=== PATIENT | male | born 1940 | race Caucasian/White ===

== ENCOUNTER → 2018-08-23 06:05 | Outpatient (CLI) | payer MEDICARE, OTHER, SELFPAY ==
--- NOTE | 2018-08-23 06:41 | MRI_ITS ---
STUDY: MRI ABDOMEN WITHOUT CONTRAST REASON FOR EXAM: Male, 78 years old. Dilated common bile duct and elevated liver enzymes. TECHNIQUE: Standardized fat and water weighted pulse sequences were obtained in all 3 orthogonal planes. COMPARISON: Prior comparison studies are not available for review at this time. FINDINGS: The visualized lung bases are unremarkable. The visualized portions of the heart are within normal limits. Normal liver. Normal gallbladder and extrahepatic biliary system. The common bile duct measures 5.9 mm in greatest transverse dimension at the pancreatic head. There is a questionable stricture of the common bile duct within the ampulla. Normal spleen. There is diffuse atrophy of the pancreas. Normal bilateral adrenal glands. Normal right kidney. There appear to be a cyst within the left kidney as well as a exophytic cyst arising from the right kidney. The largest cyst measures up to 3.6 cm in greatest dimension. Normal visualized stomach. There is no evidence for dilated bowel, ascites or pneumoperitoneum. Normal colon. There is non-visualization of the appendix. Abdominal aorta is mildly tortuous. Normal inferior vena cava. Normal retroperitoneum. Normal abdominal wall. Normal osseous structures. MRI/Abdomen without Contrast IMPRESSION: 1. Mild prominence of the extrahepatic ducts without evidence for choledocholithiasis. Questionable biliary stricture. 2. Bilateral renal cysts. Electronically Signed: Meredith Urias MD at 4:59 EST , Service support ,
== END ==
PROVIDERS: Family Provider Family Medicine; PCP Family Medicine; Referring Provider Internal Medicine Gastroenterology; Visit Provider Internal Medicine Gastroenterology
DX: K83.8 Other specified diseases of biliary tract (principal); R94.5 Abnormal results of liver function studies
CPT/HCPCS: 74181

== ENCOUNTER 2019-02-21 12:16 | Inpatient (IN) | payer MEDICARE, OTHER, SELFPAY ==
[2019-02-21] VITALS (9 sets, daily range): BP systolic 125–159; BP diastolic 49–66; PULSE 87–107; RESP 16–18; TEMP 36.8–38.3; O2SAT 95–97; BMI 24.0; BMI 23.7; BMI 23.8
--- NOTE | 2019-02-21 12:43 | RAD_ITS ---
STUDY: X-RAY CHEST REASON FOR EXAM: Male, 79 years old. Chest pain. Fever. Weakness/fatigue. TECHNIQUE: Single AP portable view of the chest. COMPARISON: None. FINDINGS: Increased markings at the lung bases worse in the lingular segment of the left upper lobe. This most likely secondary to scarring although atelectasis cannot be excluded. There is no demonstrated pleural abnormality. Normal size heart. Calcification of the mitral valve annulus. Normal mediastinum and gay. Normal visualized pulmonary arteries. There is atherosclerotic calcification of the aortic arch with tortuosity. There are diffuse degenerative changes of the visualized thoracic spine. Normal visualized ribs, clavicles, and shoulders. There is no demonstrated abnormality of the visualized soft tissue structures of the upper abdomen. RAD/Chest 1 View (Portable) IMPRESSION: Mild increased markings at the lung bases worse in the lingular segment of the left upper lobe as described. Follow-up is recommended. Electronically Signed: Gal Hanna, at 13:14 EDT , Service support ,
--- NOTE | 2019-02-21 12:43 | EKG12_ITS ---
Test Reason : WEAKNESS Blood Pressure : / mmHG Vent. Rate : 097 BPM Atrial Rate : 097 BPM P-R Int : 150 ms QRS Dur : 108 ms QT Int : 326 ms P-R-T Axes : 013 019 025 degrees QTc Int : 414 ms Normal sinus rhythm Incomplete right bundle branch block Nonspecific ST abnormality Abnormal ECG Confirmed by LANEY LIRA, ALEJANDRA ([id number]), industrial editor MAMTA ALBARRAN ([id number]) on 02/23/2019 10:45:03 AM Referred By: ELIO Confirmed By:ALEJANDRA DAVISON MD
[2019-02-21 13:13] LABS: Absolute Lymphocyte Count 0.53 X10^3/uL (0.83-4.51); Absolute Neutrophil Count 18.1 X10^3/uL (2.0-7.7); Basophil# 0.02 X10^3/uL; Basophil% 0.1 % (0-1); Hematocrit 37.1 % (40-54); Hemoglobin 12.6 g/dL (13.0-16.5); Lymphocyte # 0.53 X10^3/ul (4.0); Lymphocyte % 2.7 % (19-41); Mean Corpuscular Hgb 30.6 pg (27.0-32.0); Mean Platelet Vol. 9.3 fl (6.2-12.0); Monocyte# 1.09 X10^3/uL; Monocyte% 5.5 % (0-10); NRBC Flagged by Analyzer 0 % (0-5); Neutrophil # 18.05 X10^3/uL (2.7-7.7); Neutrophil % 90.1 % (47-70); POSITIVE DIFFERENTIAL YES; POSITIVE MORPHOLOGY YES; Platelet Count 165 K/mm3 (150-450); RBC Distribution Width CV 13.5 % (11.6-14.6); RBC Distribution Width SD 44.7 fl (35.1-43.9); Red Blood Count 4.12 M/mm3 (4.6-6.2)
[2019-02-21] MEDS: 0.9% Normal Saline 1,000 ML 999 ML IV (13:13)
[2019-02-21 13:21] LABS: Squamous Epithelial Cells - UA 0 SEEN /hpf (0-5)
[2019-02-21 13:35] LABS: Anion Gap 7 (5-15); BUN 13 mg/dL (7-18); BUN/Creat Ratio 11.7 RATIO (10-20); Calcium,Total 8.6 mg/dL (8.5-10.1); Chloride 101 mmol/L (98-107); Creatinine, Serum 1.11 mg/dL (0.70-1.30); EST Glomerular Filtration Rate 68 mL/min (>60); Est Glom Filt Rate - Afr Amer 83 mL/min (>60); Estimated Creatinine Clearance 59.36 ml/min; Glucose 146 mg/dL (74-106); Potassium 3.9 mmol/L (3.5-5.1); Sodium Level 135 mmol/L (136-145); Thyroid Stim Hormone (TSH) 0.43 uIU/mL (0.358-3.74)
[2019-02-21 13:36] LABS: Color, Urine Yellow (Yellow); Glucose, Dipstick 50 mg/dl (Normal); Ketone-Dipstick 15 mg/dl (Negative); Leukocyte Esterase-Dipstick 500 /ul (Negative); Nitrite-Dipstick Negative (Negative); Occult Blood-Urine 25 /ul (Negative); Protein-Dipstick 100 mg/dl (Negative); Urine Clarity Cloudy (Clear); Urine Urobilinogen 8 mg/dl (Normal)
[2019-02-21 13:53] LABS: Urine Bilirubin Dipstick 1 mg/dL (Negative)
[2019-02-21 14:00] LABS: Bacteria 2+ /hpf (None Seen); Mucous, Urine 4+ /hpf (<or=2+); White Blood Cells >100 SEEN /hpf (0-5)
[2019-02-21 14:01] LABS: Amorphous Sediment 1+; Red Blood Cells-Urine 5-10 SEEN /hpf (0-5)
[2019-02-21 14:09] LABS: Platelet Estimate ADEQUATE (ADEQ); Red Cell Morphology NORM C+C NORMAL (NORM C&C)
[2019-02-21 14:15] LABS: Differential Indicated SCAN CRITERIA MET
--- NOTE | 2019-02-21 14:17 | ED.VISSUMM ---
- ER Visit Summary Date of Service: 02/21/19 Chief Complaint: Weakness History of Present Illness: The patient is a 79 M with generalized weakness for several days. He feels like he might be dehydrated. He is sleeping more than usual. He feels dizzy and lightheaded at times. He had a fever as high as 102 at home. He was vomiting yesterday. He never felt like this before. He has a history of hypertension, BPH, and restless leg syndrome. Physical Examination: Heart rate 107. Afebrile. Otherwise vitals unremarkable. HEENT exam unremarkable. Heart tachycardic but regular. Lungs clear. Abdomen soft and nontender. Extremities normal. Skin normal. Test Results: EKG showed sinus rhythm at a rate of 97. Nonspecific ST changes. No sign of acute ischemia or infarction pattern. White count 20 and hemoglobin 12.6. Sodium 135 and glucose 146. Urinalysis shows signs of infection. Cultures pending. Lactate pending. Troponin normal. TSH normal. Chest x-ray showed increased marking at the bases favoring scarring versus atelectasis. Emergency Department Course and Treatment: Patient was treated with IV fluids while awaiting results. His initial symptoms were nonspecific. His white count is elevated and he meets sepsis criteria. His urine shows signs of infection. Cultures and lactate were added. He was treated with Rocephin. Given his age, sepsis, infection findings, he will be discussed with the hospitalist for admission. Treatment Plan: As above Disposition: Admission Impression: 1. UTI 2. Sepsis This note was generated with [employer] dictation software. It may contain incorrect words, spelling, and punctuation that were not noted in review of the chart prior to signing ED Disposition - Plan for ED Patient: Referrals: Yoel Yoder MD [Primary Care Provider] -
--- NOTE | 2019-02-21 14:24 | HP.PCM_ITS ---
Problem List (1) Urinary tract infection with fever Status: Acute (2) Hypertension Status: Chronic (3) BPH Status: Chronic History of Present Illness Date of Admission: 02/21/19 Chief Complaint: Fever for 3 to 4 days The patient is a 79 year old M was sent to ER from PCP Dr. Yoder for fever 102 Fahrenheit at home along with feeling generalized weakness for 3 to 4 days. Patient is also very somnolent and feels dehydrated. As per the , patient is fairly healthy person does not have medical comorbidities except hypertension and BPH. Patient has burning micturition for 3 to 4 days along with intermittent micturition. He denies any change in the frequency or urgency and has chronic urinary incontinence. He wakes up 3 times a night and 4 times during daytime for urination. Denies cough, sore throat or other upper respiratory symptoms except nasal congestion when he wakes up in the morning Denies any history of kidney stone, renal angle pain/back pain, nausea, vomiting. In ED, T-max 100.8, heart rate 99/min but no tachypnea or hypoxia. Basic labs shows leukocytosis 20,000 with left shift 90% neutrophil. Glucose 146. Sodium 135. UA more than 100 WBC, 2+ bacteria, LE 500, nitrite negative. Patient is started on IV ceftriaxone in ED. Chest x-ray shows mild increased markings at lung bases worse in the lumbar segment. This most likely secondary to scarring although atelectasis cannot be excluded. Past Medical History Past Medical History (Chronic Problems): Chronic Problems Hypertension (Chronic) BPH (Chronic) Allergies No Known Allergies Allergy (Verified 02/21/19 12:18) Home Medications: Ambulatory Orders Medication Instructions Recorded Aspirin [Aspirin, Baby] 81 mg PO DAILY@0800 02/21/19 Lisinopril [Zestril] 10 mg pe PO DAILY 02/21/19 Multivitamin [Daily Multiple 1 ea PO DAILY 02/21/19 Vitamin] Ropinirole HCl [Requip] 2 mg PO DAILY 02/21/19 Terazosin HCl 5 mg PO DAILY 02/21/19 Smoking Status: Former smoker - *Family History Maternal History Items: Stroke Review of Systems Constitutional: Reports: Anorexia, Chills, Fever, Malaise, Weakness, Fatigue HEENT: Reports: Difficulty Hearing. Denies: Head Aches, Sinus Congestion, Sinus Drainage Cardiovascular: Denies: Chest Pain, Palpitations Respiratory: Denies: Cough, Shortness of breath at rest, Sputum production Gastrointestinal: Denies: Abdominal Pain, Nausea, Vomiting Genitourinary: Denies: Dysuria Musculoskeletal: Denies: Joint Pain, Joint Tenderness Skin: Denies: Rash, Wounds Neurological: Denies: Numbness, Tingling, Focal weakness Psychiatric: Denies: Anxiety, Depression, Homicidal Ideations, Suicidal Ideations Hematologic/ Lymphatic: Denies: Easy Bruising, Easy Bleeding VTE Information - Inpt Only VTE Present on Admission: No VTE Mechan Device Prophylaxis: SCD's, None VTE Pharm Prophylaxis ordered?: Yes Patient Problems: Active and Suspected Problems Urinary tract infection with fever (Acute) - Physical Exam General: Alert, Oriented x3, Cooperative HEENT: Atraumatic, PERRLA, EOMI, Normocephalic Oral: - - Hard of hearing on left ear Neck: Supple, No JVD, Negative Carotid Bruits Lungs: Clear to auscultation, No rhonchi, No wheeze, Diminished - Air entry is diminished on bilateral lung bases. Cardiovascular: Regular rate, Regular Rhythm, Normal S1, Normal S2, No murmurs Abdomen: Bowel Sounds Present, Soft, Non Tender, Non-Distended, - - No renal angle tenderness or fullness. No suprapubic tenderness. Extremities: No edema, Capillary Refill Less than 3 Seconds Skin: No rashes, No breakdown Musculoskeletal: No Tenderness to Palpation of Joints or Extremities, Arthritic Changes Lymphatic: No Cervical, Supraclavicular, or Inguinal Adenopathy Neurological: Cranial nerves II-XII grossly intact, Deep Tendon Reflexes 2+/4 and Symmetrical, Neuro grossly intact, Motor Exam 5/5 strength throughout Psych/Mental Status: Normal Affect, Appropriate Vital Signs Temp Pulse Resp BP Pulse Ox 100.5 F H 95 16 159/51 H 96 02/21/19 14:15 02/21/19 14:15 02/21/19 14:15 02/21/19 13:28 02/21/19 14:15 Oxygen Delivery Method Room Air Weight: 171 lb 15.369 oz Body Mass Index (BMI) 24.0 Laboratory Tests Past 24 Hrs 02/21/19 02/21/19 02/21/19 13:00 13:00 13:14 WBC 20.0 H RBC 4.12 L Hgb 12.6 L Hct 37.1 L MCV 90.0 MCH 30.6 MCHC 34.0 RDW Std Deviation 44.7 H RDW Coeff of [place] 13.5 Plt Count 165 MPV 9.3 Immature Gran % (Auto) 1.600 H Neut % (Auto) 90.1 H Lymph % (Auto) 2.7 L Benson % (Auto) 5.5 Eos % (Auto) 0.0 Baso % (Auto) 0.1 Absolute Neuts (auto) 18.1 H Absolute Lymphs (auto) 0.53 L Nucleated RBC % 0 Platelet Estimate ADEQUATE RBC Morphology NORM C+C Sodium 135 L Potassium 3.9 Chloride 101 Carbon Dioxide 27.0 Anion Gap 7 BUN 13 Creatinine 1.11 Estim Creat Clear Calc 59.36 Est GFR (MDRD) Af Amer 83 Est GFR (MDRD) Non-Af 68 BUN/Creatinine Ratio 11.7 Glucose 146 H Calcium 8.6 Troponin I < 0.015 TSH 0.43 Urine Color Yellow Urine Clarity Cloudy Urine pH 6.0 Ur Specific [place] 1.020 Urine Protein 100 H Urine Glucose (UA) 50 H Urine Ketones 15 H Urine Occult Blood 25 H Urine Nitrite Negative Urine Bilirubin 1 H Urine Urobilinogen 8 H Ur Leukocyte Esterase 500 H Urine RBC 5-10 SEEN Urine WBC >100 SEEN Ur Squamous Epith Cells 0 SEEN Amorphous Sediment 1+ Urine Bacteria 2+ Urine Mucus 4+ Assessment/Plan All Active Problems Urinary tract infection with fever (Acute) The patient is a 79 year old M was sent to ER from PCP Dr. Yoder for fever 102 Fahrenheit at home along with feeling generalized weakness for 3 to 4 days. Patient is also very somnolent and feels dehydrated. As per the , patient is fairly healthy person does not have medical comorbidities except hypertension and BPH. In ED, T-max 100.8, heart rate 99/min but no tachypnea or hypoxia. Basic labs shows leukocytosis 20,000 with left shift 90% neutrophil. Glucose 146. Sodium 135. UA more than 100 WBC, 2+ bacteria, LE 500, nitrite negative. Patient is started on IV ceftriaxone in ED. 1. SIRS( fever, leukocytosis with left shift) secondary to UTI: The patient is being admitted on [facility] floor. Started on IV fluid normal saline. On IV cef triaxone. Urine culture and blood cultures x2 ordered from ED. Renal and bladder ultrasound ordered. 2. Generalized weakness, probably secondary to UTI: TSH is normal 0.43. PT and OT ordered. 3. BPH: The patient has chronic history of increased frequency, urgency, dribbling of urine and intermittent micturition: Continue Flomax. Bladder scan every 4 hourly for postvoid residual. 4. Abnormal chest x-ray finding probably secondary to atelectasis: Chest x-ray shows mild increased markings at lung bases worse in the lumbar segment. This most likely secondary to scarring although atelectasis cannot be excluded. Repeat chest x-ray PA and lateral tomorrow a.m. 5. Other comorbidities include hypertension, restless leg syndrome: Controlled. Continue home medications. DVT prophylaxis: Lovenox 40 mg subcu daily. MOLST/advance directive/living will: Discussed with the patient and his near the bedside. Patient has living will but does not know about the content. On giving different options full code, DNR CC arrest and DNR CC, patient picked up a full code for now. Advised to bring up living will to hospital. Currently, patient agrees for artificial life support including intubation, tube feed, ventilator and/chest compression. Full code. Total time spent in [id number] encounter in discussion of advanced directive 18 minutes. Clinical Impression(s) from Imaging Studies Chest X-Ray 02/21/19 12:43 IMPRESSION: Mild increased markings at the lung bases worse in the lingular segment of the left upper lobe as described. Follow-up is recommended. Code Visit Inpatient E&M: 49875 Init Hosp L3 Procedures: 07865 Advncd Care Plan 30 Min
[2019-02-21] MEDS: Ceftriaxone 1 GM/50 ML BAG IV (14:51)
[2019-02-21 15:00] LABS: Lactic Acid 0.9 mmol/L (0.4-2.0)
--- NOTE | 2019-02-21 15:16 | US_ITS ---
STUDY: RENAL ULTRASOUND - COMPLETE REASON FOR EXAM: Male, 79 years old. Fever, UTI TECHNIQUE: Ultrasound evaluation of the kidneys was performed with real-time and static hutchinson-scale imaging. COMPARISON: None. FINDINGS: RIGHT KIDNEY: Normal location of the right kidney, which is normal in size. The right kidney measures 13.7 x 5.9 x 5.1 cm. There is a normal cortex of the right kidney. The renal cortex measures 1.7 cm. There is an upper pole exophytic 2.3 cm right renal cyst. There are no right renal calculi. There is no right hydronephrosis. DISTAL RIGHT URETER: There is non-visualization of the distal right ureter. There is no demonstrated right ureterovesical junction calculus. There is a visualized right ureteral jet. LEFT KIDNEY: Normal location of the left kidney, which is normal in size. The left kidney measures 13.8 x 4.6 x cysts up to 1.6 cm. There is a normal cortex of the left kidney. The renal cortex measures 1.8 cm. There is no left renal mass or cyst. There are no left renal calculi. There is no left hydronephrosis. DISTAL LEFT URETER: There is non-visualization of the distal left ureter. There is no demonstrated left ureterovesical junction calculus. There is a visualized left ureteral jet. BLADDER: The distended urinary bladder has a volume of 230 ml. There is irregular slightly thickened posterior wall. There is no demonstrated mass within the urinary bladder. There are no demonstrated bladder calculi. US/Kidney and Bladder IMPRESSION: Cysts are noted of the kidneys. Posterior irregular slightly thickened wall is noted of the urinary bladder. Cystitis cannot be excluded. Electronically Signed: Anthony Luna DO at 18:15 EDT Tel [phone], Service support ,
[2019-02-21] MEDS: Acetaminophen 325 MG Tablet 650 MG PO (15:45)
[2019-02-21] MEDS: 0.9% Normal Saline 1,000 ML 100 ML IV (15:45)
[2019-02-21] MEDS: Enoxaparin 40 MG/0.4 ML Syringe SC (15:46)
[2019-02-22] VITALS (7 sets, daily range): BP systolic 139–152; BP diastolic 53–65; PULSE 70–100; RESP 18; TEMP 36.8–37.2; O2SAT 95–98
[2019-02-22 05:39] LABS: Absolute Lymphocyte Count 0.92 X10^3/uL (0.83-4.51); Absolute Neutrophil Count 12.6 X10^3/uL (2.0-7.7); Basophil# 0.03 X10^3/uL; Basophil% 0.2 % (0-1); Eosinophil# 0.01 X10^3/uL; Eosinophils% 0.1 % (0-5); Hematocrit 35.8 % (40-54); Hemoglobin 11.7 g/dL (13.0-16.5); Lymphocyte # 0.92 X10^3/ul (4.0); Lymphocyte % 6.3 % (19-41); Mean Corp Hgb Conc 32.7 g/dL (32-36); Mean Corpuscular Hgb 29.4 pg (27.0-32.0); Mean Corpuscular Volume 89.9 fL (80-94); Mean Platelet Vol. 9.3 fl (6.2-12.0); Monocyte# 0.89 X10^3/uL; Monocyte% 6.1 % (0-10); NRBC Flagged by Analyzer 0 % (0-5); Neutrophil # 12.64 X10^3/uL (2.7-7.7); Neutrophil % 86.7 % (47-70); Platelet Count 149 K/mm3 (150-450); RBC Distribution Width CV 13.4 % (11.6-14.6); Red Blood Count 3.98 M/mm3 (4.6-6.2); White Blood Count 14.6 K/mm3 (4.4-11.0)
[2019-02-22 06:05] LABS: Anion Gap 8 (5-15); BUN 11 mg/dL (7-18); BUN/Creat Ratio 12.1 RATIO (10-20); Calcium,Total 8.4 mg/dL (8.5-10.1); Chloride 104 mmol/L (98-107); Creatinine, Serum 0.91 mg/dL (0.70-1.30); EST Glomerular Filtration Rate 86 mL/min (>60); Est Glom Filt Rate - Afr Amer 104 mL/min (>60); Estimated Creatinine Clearance 70.19 ml/min; Glucose 118 mg/dL (74-106); Potassium 3.9 mmol/L (3.5-5.1); Sodium Level 138 mmol/L (136-145); T4 Free Direct 0.93 ng/dL (0.76-1.46)
--- NOTE | 2019-02-22 07:12 | PCM.PN.HOSP ---
Patient Problems: Active and Suspected Problems Urinary tract infection with fever (Acute) Subjective: Patient is a 79-year-old male sent from PCPs office with progressive generalized weakness of 3-4 duration as well as fever. Patient assessment on admission was consistent with sepsis secondary to UTI admitted to regular nursing for further management Patient has been admitted to a regular nursing floor where he is currently being managed. W BC count remains elevated at 15 K Objective: GENERAL: cooperative HEENT: Atraumatic; EYES; Anicteric, Normal Conjunctiva NECK; supple, normal thyroid, RESPIRATORY: Diminished to auscultation CARDIOVASCULAR: Regular S1 S2, GI: soft, non-tender, normoactive bowel sounds, : No Renal angle tenderness; EXTREMITIES: No edema, no clubbing, MUSCULOSKELETAL: No Joint Tenderness; NEURO: Awake; no lateralizing signs. SKIN: No Rash PSYCH; Normal affect Vitals/I&O's: Vital Signs Temp Pulse Resp BP Pulse Ox 98.2 F 93 18 152/60 H 97 02/22/19 02:45 02/22/19 02:45 02/22/19 02:45 02/22/19 02:45 02/22/19 02:45 Oxygen Delivery Method Room Air Weight: 77 kg Body Mass Index (BMI) 23.7 Intake and Output for Last 24 Hours 02/20/19 02/21/19 02/22/19 23:59 23:59 23:59 Intake Total 506 / 1307 1318 / 1318 Balance 506 / 1307 1318 / 1318 Laboratory Results 02/21/19 13:00: WBC 20.0 H, RBC 4.12 L, Hgb 12.6 L, Hct 37.1 L, MCV 90.0, MCH 30.6, MCHC 34.0, RDW Std Deviation 44.7 H, RDW Coeff of [place] 13.5, Plt Count 165, MPV 9.3, Immature Gran % (Auto) 1.600 H, Neut % (Auto) 90.1 H, Lymph % (Auto) 2.7 L, Clay % (Auto) 5.5, Eos % (Auto) 0.0, Baso % (Auto) 0.1, Absolute Neuts (auto) 18.1 H, Absolute Lymphs (auto) 0.53 L, Nucleated RBC % 0, Platelet Estimate ADEQUATE, RBC Morphology NORM C+C 02/21/19 13:00: Sodium 135 L, Potassium 3.9, Chloride 101, Carbon Dioxide 27.0, Anion Gap 7, BUN 13, Creatinine 1.11, Estim Creat Clear Calc 59.36, Est GFR (MDRD) Af Amer 83, Est GFR (MDRD) Non-Af 68, BUN/Creatinine Ratio 11.7, Glucose 146 H, Calcium 8.6, Troponin I < 0.015, TSH 0.43 02/21/19 13:14: Urine Color Yellow, Urine Clarity Cloudy, Urine pH 6.0, Ur Specific [place] 1.020, Urine Protein 100 H, Urine Glucose (UA) 50 H, Urine Ketones 15 H, Urine Occult Blood 25 H, Urine Nitrite Negative, Urine Bilirubin 1 H, Urine Urobilinogen 8 H, Ur Leukocyte Esterase 500 H, Urine RBC 5-10 SEEN, Urine WBC >100 SEEN, Ur Squamous Epith Cells 0 SEEN, Amorphous Sediment 1+, Urine Bacteria 2+, Urine Mucus 4+ 02/21/19 14:25: Lactic Acid 0.9 02/22/19 05:24: WBC 14.6 H, RBC 3.98 L, Hgb 11.7 L, Hct 35.8 L, MCV 89.9, MCH 29.4, MCHC 32.7, RDW Std Deviation 45.0 H, RDW Coeff of [place] 13.4, Plt Count 149 L, MPV 9.3, Immature Gran % (Auto) 0.600, Neut % (Auto) 86.7 H, Lymph % (Auto) 6.3 L, Clay % (Auto) 6.1, Eos % (Auto) 0.1, Baso % (Auto) 0.2, Absolute Neuts (auto) 12.6 H, Absolute Lymphs (auto) 0.92, Nucleated RBC % 0 02/22/19 05:24: Sodium 138, Potassium 3.9, Chloride 104, Carbon Dioxide 26.0, Anion Gap 8, BUN 11, Creatinine 0.91, Estim Creat Clear Calc 70.19, Est GFR (MDRD) Af Amer 104, Est GFR (MDRD) Non-Af 86, BUN/Creatinine Ratio 12.1, Glucose 118 H, Calcium 8.4 L, Free T4 0.93 02/22/19 05:24: Hemoglobin A1c Pending Current Medications Acetaminophen (Tylenol) 650 mg PO Q6H PRN PRN PRN Reason: Mild Pain (1-3)/Temp > 100.7 F Last Admin: 02/21/19 15:45 Dose: 650 mg Documented by: Al Hydroxide/Mg Hydroxide (Mylanta Ii) 30 ml PO Q6H PRN PRN PRN Reason: Gastric Burning Aspirin (Aspirin, Baby) 81 mg PO DAILY@0800 [facility] Bisacodyl (Dulcolax) 5 mg PO DAILY PRN PRN PRN Reason: Constipation Doxazosin Mesylate (Cardura) 4 mg PO DAILY [facility] Enoxaparin Sodium (Lovenox) 40 mg SC DAILY [facility] Last Admin: 02/21/19 15:46 Dose: 40 mg Documented by: Ceftriaxone Sodium (Rocephin) 1 gm in 50 mls @ 100 mls/hr IV Q24 [facility] Lisinopril (Zestril) 10 mg PO DAILY [facility] Melatonin (Melatonin) 3 mg PO QHS PRN PRN PRN Reason: INSOMNIA Multivitamins (Multivitamin) 1 tablet PO DAILY@0800 [facility] Nutritional Formula (Lactose Free) (Ensure Enlive) 120 ml PO 4X/DAY [facility] Last Admin: 02/21/19 20:39 Dose: 120 ml Documented by: Oxycodone HCl (Oxyir) 5 mg PO Q4H PRN PRN PRN Reason: Moderate Pain (4-6/10) Polyethylene Glycol (Miralax) 17 gm PO DAILY [facility] Last Admin: 02/21/19 15:45 Dose: Not Given Documented by: Pramipexole Dihydrochloride (Mirapex) 1 mg PO DAILY [facility] Psyllium Hydrophilic Mucilloid (Metamucil) 1 packet PO DAILY PRN PRN PRN Reason: Constipation Senna/Docusate Sodium (Senokot-S, Lindsey-Colace) 2 tablet PO BID [facility] Stop: 02/23/19 22:01 Last Admin: 02/21/19 20:37 Dose: Not Given Documented by: Medical Necessity - Tobacco Use Smoking Status: Former smoker Tobacco Use: Cigarettes, Chew, Pipe Assessment/Plan All Active Problems Urinary tract infection with fever (Acute) Patient is a 79-year-old male sent from PCPs office with progressive generalized weakness of 3-4 duration as well as fever. Patient assessment on admission was consistent with sepsis secondary to UTI admitted to regular nursing for further management 1. Sepsis secondary to acute cystitis: Admitted to regular nursing floor started on Rocephin cultures sent with plans to adjust antibiotic therapy based on culture result. 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 Patient was also noted to have kidney cyst informed to resolve with plans for patient to follow-up with PCP for serial monitoring 2. Adult failure to thrive secondary to above requested for PT OT eval 3. BPH patient is on Flomax for symptom control 4. Hypertension-blood pressure controlled, home medications continued with dose adjustment as needed 5. Restless leg syndrome patient is on Mirapex discontinued 6. DVT prophylaxis SC Lovenox Active Medications Acetaminophen (Tylenol) 650 mg PO Q6H PRN PRN PRN Reason: Mild Pain (1-3)/Temp > 100.7 F Last Admin: 02/21/19 15:45 Dose: 650 mg Documented by: Al Hydroxide/Mg Hydroxide (Mylanta Ii) 30 ml PO Q6H PRN PRN PRN Reason: Gastric Burning Aspirin (Aspirin, Baby) 81 mg PO DAILY@0800 [facility] Bisacodyl (Dulcolax) 5 mg PO DAILY PRN PRN PRN Reason: Constipation Doxazosin Mesylate (Cardura) 4 mg PO DAILY [facility] Enoxaparin Sodium (Lovenox) 40 mg SC DAILY [facility] Last Admin: 02/21/19 15:46 Dose: 40 mg Documented by: Ceftriaxone Sodium (Rocephin) 1 gm in 50 mls @ 100 mls/hr IV Q24 [facility] Lisinopril (Zestril) 10 mg PO DAILY [facility] Melatonin (Melatonin) 3 mg PO QHS PRN PRN PRN Reason: INSOMNIA Multivitamins (Multivitamin) 1 tablet PO DAILY@0800 [facility] Nutritional Formula (Lactose Free) (Ensure Enlive) 120 ml PO 4X/DAY [facility] Last Admin: 02/21/19 20:39 Dose: 120 ml Documented by: Oxycodone HCl (Oxyir) 5 mg PO Q4H PRN PRN PRN Reason: Moderate Pain (4-6/10) Polyethylene Glycol (Miralax) 17 gm PO DAILY [facility] Last Admin: 02/21/19 15:45 Dose: Not Given Documented by: Pramipexole Dihydrochloride (Mirapex) 1 mg PO DAILY [facility] Psyllium Hydrophilic Mucilloid (Metamucil) 1 packet PO DAILY PRN PRN PRN Reason: Constipation Senna/Docusate Sodium (Senokot-S, Lindsey-Colace) 2 tablet PO BID [facility] Stop: 02/23/19 22:01 Last Admin: 02/21/19 20:37 Dose: Not Given Documented by: Clinical Impression(s) from Imaging Studies Chest X-Ray 02/21/19 12:43 IMPRESSION: Mild increased markings at the lung bases worse in the lingular segment of the left upper lobe as described. Follow-up is recommended. Electronically Signed: Gal Hanna, at 13:14 EDT , Service support , Renal Ultrasound 02/21/19 15:16 IMPRESSION: Cysts are noted of the kidneys. Posterior irregular slightly thickened wall is noted of the urinary bladder. Cystitis cannot be excluded. Electronically Signed: Anthony Luna DO at 18:15 EDT Tel [phone], Service support , Code Visit Inpatient E&M: 57742 Subs Hosp L3
[2019-02-22] MEDS: Enoxaparin 40 MG/0.4 ML Syringe SC (09:51)
[2019-02-22] MEDS: Ceftriaxone 1 GM/50 ML BAG IV (09:51)
[2019-02-22] MEDS: Aspirin 81 MG TAB.CHEW PO (09:51)
[2019-02-22] MEDS: Multivitamins,Therapeutic Tablet 1 TABLET PO (09:51)
[2019-02-22] MEDS: Lisinopril 10 MG Tablet PO (09:51)
--- NOTE | 2019-02-22 12:06 | CASEMGMT ---
RN CM Assessment Presentation: UTI with fever. Intro role of CM and purpose of RN CM assessment to patient in . Demographics, PCP and Pharmacy verified. Pt is awake, alert, oriented and able to participate in assessment. Awaiting cultures, and pt states he hopes to return home tomorrow. PCP: Dr. Yoder Specialists: None per pt Preferred Pharmacy: [facility] Insurance: [facility] Prescription Benefit: yes LNOK: Glenn Gómez Living Arrangements: Lives in one story home independently. denies care needs and states he does not anticipate any difficulties on dc. Transportation: Drives DME: none HHC: none Patient DC goals: Home DC PLAN: Home ABalogh BSN RN ACM
[2019-02-22 15:10] LABS: Hemoglobin A1c 5.9 % (4.2-6.3)
[2019-02-22] MEDS: Doxazosin 4 MG Tablet PO (21:37)
[2019-02-22] MEDS: Pramipexole Di-HCl 1 MG Tablet PO (21:43)
[2019-02-23 02:41] VITALS: BP 135/66; PULSE 66; RESP 16; TEMP 37; O2SAT 96
[2019-02-23 07:13] VITALS: BP 138/56; PULSE 76; RESP 16; TEMP 36.9; O2SAT 98
[2019-02-23] MEDS: Multivitamins,Therapeutic Tablet 1 TABLET PO (07:27)
[2019-02-23] MEDS: Aspirin 81 MG TAB.CHEW PO (07:27)
--- NOTE | 2019-02-23 08:19 | PCM.DC.SUM ---
Discharge Date and Diagnosis - Problem List Patient Problems: Active and Suspected Problems Urinary tract infection with fever (Acute) Date of Admission: 02/21/19 Date of Discharge: 02/23/19 - Primary Discharge Diagnosis Active and Suspected Problems Urinary tract infection with fever (Acute) - Secondary Discharge Diagnosis Chronic Problems Hypertension (Chronic) BPH (Chronic) Hospital Course and Treatment Imaging Results: Clinical Impression(s) from Imaging Studies Chest X-Ray 02/21/19 12:43 IMPRESSION: Mild increased markings at the lung bases worse in the lingular segment of the left upper lobe as described. Follow-up is recommended. Electronically Signed: Gal Hanna, at 13:14 EDT , Service support , Renal Ultrasound 02/21/19 15:16 IMPRESSION: Cysts are noted of the kidneys. Posterior irregular slightly thickened wall is noted of the urinary bladder. Cystitis cannot be excluded. Electronically Signed: Anthony Luna DO at 18:15 EDT Tel [phone], Service support , Microbiology 02/21/19 16:20 Urine, Clean Catch Urine Culture - Final Acinetobacter baumannii Summary of Care Provided: Patient is a 79-year-old male sent from PCPs office with progressive generalized weakness of 3-4 duration as well as fever. Patient assessment on admission was consistent with sepsis secondary to UTI admitted to regular nursing for further management 1. Sepsis secondary to acute cystitis with Acinetobacter: Admitted to regular nursing floor started on Rocephin cultures sent with plans to adjust antibiotic therapy based on culture result. As part of his evaluation renal and bladder ultrasound were ordered; it did demonstrate Posterior irregular slightly thickened wall is noted of the urinary bladder dental chairside assistant with cystitis. Patient was also noted to have kidney cyst informed to resolve with plans for patient to follow-up with PCP for serial monitoring Rocephin was discontinued on discharge patient was prescribed ciprofloxacin 500 mg p.o. twice daily for 5 more days 2. Adult failure to thrive secondary to above requested for PT OT eval 3. BPH patient is on Flomax for symptom control 4. Hypertension-blood pressure controlled, home medications continued with dose adjustment as needed 5. Restless leg syndrome patient is on Mirapex discontinued 6. DVT prophylaxis SC Lovenox Patient Problems: Active and Suspected Problems Urinary tract infection with fever (Acute) Objective: GENERAL: cooperative HEENT: Atraumatic; EYES; Anicteric, Normal Conjunctiva NECK; supple, normal thyroid, RESPIRATORY: Diminished to auscultation CARDIOVASCULAR: Regular S1 S2, GI: soft, non-tender, normoactive bowel sounds, : No Renal angle tenderness; EXTREMITIES: No edema, no clubbing, MUSCULOSKELETAL: No Joint Tenderness; NEURO: Awake; no lateralizing signs. SKIN: No Rash PSYCH; Normal affect - Physical Exam Vital Signs Temp Pulse Resp BP Pulse Ox 98.4 F 76 16 138/56 H 98 02/23/19 07:13 02/23/19 07:13 02/23/19 07:13 02/23/19 07:13 02/23/19 07:13 Oxygen Delivery Method Room Air Weight: 77 kg Body Mass Index (BMI) 23.7 Intake and Output for Last 24 Hours 02/21/19 02/22/19 02/23/19 23:59 23:59 23:59 Intake Total 506 / 1307 1318 / 1318 1040 / 1040 Balance 506 / 1307 1318 / 1318 1040 / 1040 Microbiology Past 72 Hours 02/21/19 16:20 Urine Culture - Final Urine, Clean Catch Acinetobacter baumannii Laboratory Tests Past 24 Hrs 02/22/19 05:24 Hemoglobin A1c 5.9 Discharge Diet: No Restrictions Discharge Activity: Return to Normal Activity Home Medications: Medications to take at Discharge Aspirin [Aspirin, Baby] 81 mg PO DAILY@0800 02/21/19 Lisinopril [Zestril] 10 mg PO DAILY 02/21/19 Multivitamin [Daily Multiple Vitamin] 1 ea PO DAILY 02/21/19 Ropinirole HCl [Requip] 2 mg PO DAILY 02/21/19 Terazosin HCl 5 mg PO DAILY 02/21/19 Ciprofloxacin [Cipro] 500 mg PO BID #10 tab 02/23/19 Following Prescrptions Were Given to Patient: Ciprofloxacin [Cipro] 500 mg PO BID #10 tab Transmission Status: Pending to [id number] Primary Care Physician: Yoel Yoder MD [Primary Care Provider] - Please follow up with your Primary Care Physician in: in 1-2 weeks Disposition: Home Minutes spent on discharge:: 35 Patient Condition:: Stable Medical Necessity - Tobacco Use Smoking Status: Former smoker Tobacco Use: Cigarettes, Chew, Pipe Meaningful Use Info Meaningful Use Diagnoses (Choose all that apply): None applicable Code Visit Inpatient E&M: 89606 Disch Hosp
[2019-02-23] MEDS: Lisinopril 10 MG Tablet PO (09:13)
[2019-02-23] MEDS: 0.9% NaCl Peripheral Flush Adult/Peds IV (09:13)
[2019-02-23] MEDS: Ceftriaxone 1 GM/50 ML BAG IV (09:13)
--- NOTE | 2019-02-23 10:44 | PCM.DC ---
- Discharge Diagnoses Current Active Problems: Current Active and Chronic Problems Urinary tract infection with fever (Acute) Hypertension (Chronic) BPH (Chronic) You will use the following diet at home:: No restrictions Your food should be the consistency of: Regular Discharge Activity: Return to Normal Activity Allergies/Adverse Reactions: Allergies No Known Allergies Allergy (Verified 02/21/19 12:18) Medications to take at Discharge Aspirin [Aspirin, Baby] 81 mg PO DAILY@0800 02/21/19 Lisinopril [Zestril] 10 mg PO DAILY 02/21/19 Multivitamin [Daily Multiple Vitamin] 1 ea PO DAILY 02/21/19 Ropinirole HCl [Requip] 2 mg PO DAILY 02/21/19 Terazosin HCl 5 mg PO DAILY 02/21/19 Ciprofloxacin [Cipro] 500 mg PO BID #10 tab 02/23/19 The following prescriptions were given: Ciprofloxacin [Cipro] 500 mg PO BID #10 tab Transmission Status: Received by [facility]/pharmacy #[id number] Primary Care Physician: Yoel Yoder MD [Primary Care Provider] - Please follow up with your Primary Care Physician in: in 1-2 weeks Test Results: Test results from this visit will be discussed in further detail at your follow-up appointment, if applicable. Proposed Discharge Date: 02/23/19
== END 2019-02-23 11:04 | disposition home or self-care (01) | DRG 872 ==
LOC: ED 13:02 → MS3 14:36
PROVIDERS: Admitting Provider Internal Medicine; Emergency Provider Emergency Medicine; Family Provider Family Medicine; PCP Family Medicine; Visit Provider Internal Medicine
DX: A41.9 Sepsis, unspecified organism (principal); N30.00 Acute cystitis without hematuria; G25.81 Restless legs syndrome; B96.89 Other specified bacterial agents as the cause of diseases classified elsewhere; R62.7 Adult failure to thrive; I10 Essential (primary) hypertension; N40.0 Benign prostatic hyperplasia without lower urinary tract symptoms; Z72.0 Tobacco use
CPT/HCPCS: 36415; 71045; 76770; 80048; 81001; 83036; 83605; 84439; 84443; 84484; 85025; 87040; 87077; 87086; 87088; 87186; 93005; 99285; 99406; J7030; J7050; A4216

== ENCOUNTER 2020-10-04 12:00 | Outpatient (RCR) | payer MEDICARE, SELFPAY ==
[2019-02-21 15:21] VITALS: BMI 23.7
[2020-10-04] MEDS: COVID-19 VACC, MRNA(PFIZER)/PF 30 MCG/0.3 ML SYRINGE IM (11:55)
[2020-10-25] MEDS: COVID-19 VACC, MRNA(PFIZER)/PF 30 MCG/0.3 ML SYRINGE IM (11:45)
== END 2021-01-01 23:59 ==
LOC: IMMUN 12:00
PROVIDERS: PCP Family Medicine; Visit Provider Family Medicine
DX: Z23 Encounter for immunization (principal)
CPT/HCPCS: 0001A; 0002A; 91300

== ENCOUNTER 2024-02-12 15:44 | Emergency (ER) | payer MEDICARE, OTHER, SELFPAY ==
[2024-02-12 15:45] VITALS: BP 132/66; PULSE 90; RESP 17; TEMP 36.9; O2SAT 99; BMI 22.4
--- NOTE | 2024-02-12 15:49 | RAD_ITS ---
STUDY: X-RAY - RIGHT SHOULDER REASON FOR EXAM: Male, 84 years old. Fall TECHNIQUE: 4 view(s) of the shoulder. COMPARISON: None. FINDINGS: There is mild degenerative arthrosis of the glenohumeral articulation. There is degenerative arthrosis of the acromioclavicular joint without inferior osseous spur formation. Normal acromion. Normal humeral head and visualized proximal humerus. The soft tissue structures are unremarkable. Normal visualized pulmonary apex. RAD/Shoulder min 2 Views IMPRESSION: 1. No acute fracture or dislocation. 2. Mild glenohumeral and acromioclavicular joint arthrosis. Electronically Signed: Jed Lee MD at 16:17 EDT ,
[2024-02-12] MEDS: HYDROcodone Bitartrate/Apap 5/325 Tablet PO (18:39)
--- NOTE | 2024-02-12 18:51 | CT_ITS ---
HISTORY: impacted humeral head fracture Date: 02/12/2024 6:54 PM Technique: CT examination obtained with standard protocol including axial imaging with multiplanar reconstructions. Location: RIGHT upper extremity/RIGHT shoulder Contrast: No contrast administered Radiation Dose (provided by facility) CTDIvol (NA ) mGy, DLP ( NA) mGy-cm Comparison: No previous for comparison FINDINGS: BONY ELEMENTS: 1. There is mild degenerative change involving the glenohumeral joint with osteophyte formation. No fractures or dislocation. 2. Mild degenerative change involving the AC joint. Mild osteophyte formation, subacromial space has normal appearance however. 3. Scapula has normal appearance. Clavicle has normal appearance. 4. Visualized rib cage is intact. JOINT SPACES: 1. Normal appearance of alignment of bony elements and joint spaces. No joint effusion DEEP MUSCULAR COMPARTMENTS: 1. Deep muscular compartments are well-maintained. NEURAL VASCULAR COMPARTMENTS: 1. Normal appearance of the neural vascular compartments SUBCUTANEOUS SOFT TISSUES. 1. Soft tissue edema/swelling in the subcutaneous soft tissues of the anterior arm extending into the subpectoral region. No organized fluid collection or hematoma. CT/Extremity Upper without Contra IMPRESSION: 1. Moderate degenerative change involving the lateral humeral joint with osteophyte formation. 2. No fractures dislocation or malalignment. 3. Subcutaneous soft tissue swelling/edema in the proximal arm and lateral chest. No hematoma or soft tissue gas. Electronically Signed: Jed Jara MD at 19:54 EDT ,
[2024-02-12 19:59] VITALS: BP 134/69; PULSE 72; RESP 18; O2SAT 96
[2024-02-12] MEDS: Diphth,Pertuss(Acell),Tet Vac 0.5 ML Vial IM (20:38)
[2024-02-12 20:39] VITALS: BP 129/76; PULSE 72; RESP 18; TEMP 36.7; O2SAT 97
--- NOTE | 2024-02-12 21:09 | EX.ED.UPPERE ---
HPI History of Present Illness Chief Complaint: Upper Extremity Injury Informant: patient and spouse/S.O. Narrative Narrative: 84-year-old male presenting to the emergency room with right shoulder pain and right elbow skin tear following a fall. Patient was out in his garage when he sustained a fall. He cut his elbow on the deck of a lawn more. He notes limited range of motion particularly external rotation and abduction of the right shoulder. He notes extensive bruising along the length of the anterior humerus. He denies any other injuries. He denies any head injury or neck pain. He notes he is right-handed. No hand symptoms. Tetanus Immunization: Unknown [facility] Medical History (Updated 02/12/24 @ 21:[address] Kevin Mcdermott DO) BPH Hypertension Home Medications ?Medication ?Instructions ?Recorded ?Last Taken ?Type aspirin 81 mg chewable tablet 81 mg PO DAILY@0800 heart health 02/21/19 02/21/19 History lisinopril 10 mg tablet 10 mg PO DAILY bp 02/21/19 02/20/19 History multivitamin 1 ea PO DAILY supplement 02/21/19 02/21/19 History ropinirole 2 mg tablet 2 mg PO DAILY legs 02/21/19 02/20/19 History terazosin 5 mg capsule 5 mg PO DAILY bph 02/21/19 02/20/19 History ciprofloxacin HCl 500 mg tablet 500 mg PO BID #10 tabs 02/23/19 Unknown Rx hydrocodone-acetaminophen 5-325mg 1 tab PO Q6H PRN PRN Pain 3 days 02/12/24 Unknown Rx 5mg-325mg #12 TABLETS Allergy/AdvReac Type Severity Reaction Status Date / Time No Known Allergies Allergy Verified 02/12/24 15:45 Surgical History Hx of cholecystectomy History of hernia surgery Social History household members: spouse housing: house Smoking Status: Former smoker ROS ROS ED Constitutional Constitutional ED: Denies chills or weight loss Eyes Eyes: Denies change in vision or diplopia ENT ENT ED: Denies ear pain, rhinorrhea or sore throat Cardiovascular Cardiovascular: Denies chest pain, orthopnea, palpitations or racing heartbeat Respiratory/Chest Respiratory/Chest: Denies cough, dyspnea or orthopnea Gastrointestinal Gastrointestinal: Denies abdominal pain, diarrhea, nausea or vomiting Genitourinary Genitourinary ED: Denies dysuria, hematuria or urinary frequency Musculoskeletal Musculoskeletal: Reports other Details: See history of present illness ; Denies arthralgias, back pain, myalgias or neck pain Integumentary Reports other Details: Skin tear right elbow ; Denies abscess or rash Neurologic Neurologic: Denies headache(s), paresthesias or weakness Psychiatric Psychiatric: Denies anxiety, depression, suicidal ideation or suicidal thoughts Endocrine Endocrinology: Denies polydipsia, polyphagia or polyuria Allergic/Immunologic Allergic/Immunologic ED: Denies mouth swelling, tongue swelling or urticaria EXAM Physical Exam Const Vital Signs: 02/12/24 15:45 02/12/24 19:59 02/12/24 20:39 Temperature 98.4 F 98.0 F Temperature Source Temporal Pulse Rate 90 72 72 Respiratory Rate 17 18 18 Blood Pressure 132/66 H 134/69 H 129/76 H Blood Pressure Mean 88 90 93 Pulse Ox 99 96 97 Oxygen Delivery Method Room Air Room Air Positive well nourished and well developed General Appearance ED: well developed HEENT Reports normocephalic, head/scalp atraumatic and moist mucous membranes Eyes PERRL and EOMs intact bilaterally Neck full ROM, no lymphadenopathy, supple and no JVD General: Negative for tenderness Resp normal respiratory effort and clear to auscultation bilaterally Cardio regular rate, regular rhythm and no murmurs GI normal to inspection, nondistended, normoactive bowel sounds and non-tender Palpation: soft Back/Spine no CVA tenderness and normal ROM Extremity Extremity Narrative: Patient has tenderness near the surgical neck of the right humerus. There is extensive ecchymosis along the anterior surface of the upper right arm. He has limited abduction and external rotation. Biceps appears intact. Anterior chest is nontender. Scapula palpates without tenderness neurovascular intact distal General Extremety ED: Negative for edema General Extremity: Negative for edema Neuro oriented x3 and CN's II-XII intact bilaterally Sensorium / Orientation: alert Motor Exam: strength 5/5 throughout Psych mental status grossly normal Mood & Affect: Negative for depressed or tearful Skin no rashes or lesions noted Skin Narrative: There is a 4 cm skin avulsion/tear r to the right posterior lateral elbow. No active bleeding. No secondary signs of infection. MDM MDM MDM Narrative Medical decision making narrative: Differential diagnosis includes fracture sprain strain ligamentous injury joint capsule injury tendon disruption muscle tear contusion My independent interpretation plain films of the right shoulder as a potential step-off noted on the AP view medially near the surgical neck. Given the extensive bruising and his mechanism is concern for a compressive fracture. Therefore CT was obtained which does not demonstrate an obvious fracture. He will be placed in a sling. We talked about movement of the shoulder to prevent frozen shoulder by bending over and making small circles. We talked about pain control and he received a dose of hydrocodone here which has helped as well as a prescription for hydrocodone. He will continue to ice. He will follow-up with primary care 10 days if not improved. History & Record Review Discussion w/independent historian: Patient and Significant other Radiography Diagnostic Testing: Clinical Impression(s) from Imaging Studies Shoulder X-Ray 02/12/24 15:49 IMPRESSION: 1. No acute fracture or dislocation. 2. Mild glenohumeral and acromioclavicular joint arthrosis. Electronically Signed: Jed Lee MD at 16:17 EDT , Upper Extremity CT 02/12/24 18:51 IMPRESSION: 1. Moderate degenerative change involving the lateral humeral joint with osteophyte formation. 2. No fractures dislocation or malalignment. 3. Subcutaneous soft tissue swelling/edema in the proximal arm and lateral chest. No hematoma or soft tissue gas. Electronically Signed: Jed Jara MD at 19:54 EDT , Discharge Plan Triage Chief Complaint: Upper Extremity Injury ED Provider: Kevin Mcdermott Dx/Rx/DC Orders Clinical Impression: Fall, Skin tear of elbow without complication, Contusion of right shoulder Prescriptions: New hydrocodone-acetaminophen 5-325 mg tablet 1 tab PO Q6H PRN PRN (Reason: Pain) 3 Days Qty: 12 0RF No Action multivitamin 1 EACH tablet 1 ea PO DAILY terazosin 5 MG capsule 5 mg PO DAILY ropinirole 2 MG tablet 2 mg PO DAILY lisinopril 10 MG tablet 10 mg PO DAILY aspirin 81 MG tablet,chewable 81 mg PO DAILY@0800 ciprofloxacin HCl 500 MG tablet 500 mg PO BID Qty: 10 0RF Primary Care Provider: Yoel Yoder Referrals: Yoel Yoder MD [Primary Care Provider] - 10-14 Days if not better Activity Restrictions/Additional Instructions: I expect that the amount of bruising will significantly increase overnight. You may get some bruising extending up onto the chest as well. There is not a definitive fracture seen at this time. If you continue to have pain and is not improving repeat x-rays may need to be performed or an MRI to better evaluate the tendons and joint capsule/muscles. Print Language: [place] Disposition Disposition: Home, Self Care Discharge Date/Time: 02/12/24 20:58
== END 2024-02-12 20:58 | disposition home or self-care (01) ==
PROVIDERS: Emergency Provider Emergency Medicine; PCP Family Medicine; Visit Provider Emergency Medicine
DX: S40.011A Contusion of right shoulder, initial encounter (principal); I10 Essential (primary) hypertension; Z87.891 Personal history of nicotine dependence; S51.011A Laceration without foreign body of right elbow, initial encounter; W19.XXXA Unspecified fall, initial encounter; Y92.59 Other trade areas as the place of occurrence of the external cause; Z79.82 Long term (current) use of aspirin; Z79.899 Other long term (current) drug therapy; Z90.49 Acquired absence of other specified parts of digestive tract
CPT/HCPCS: 73030; 73200; 90715; 99283